=== PATIENT | female | born 1970 | race Two or more races ===

== ENCOUNTER → 2017-03-22 | Outpatient (CLI) | payer MEDICARE ==
[2017-03-22 14:26] LABS: LYMPH # 2.7 K/mm3 (0.7-4.5); LYMPH % 34.3 % (10-50.0)
[2017-03-22 16:28] LABS: BUN 7 mg/dL (7-18)
[2017-03-22 16:47] LABS: GFR (ESTIMATED) 77 ML/MIN (59-)
[2017-03-23 09:38] LABS: HBsAg Screen Negative (Negative); Hep A Ab, IgM Negative (Negative); Hep B Core Ab, IgM Negative (Negative); Hep C Virus Ab 0.1 (0.0-0.9)
== END ==
LOC: LAB 13:44
PROVIDERS: Nurse Practitioner Family
DX: E11.21 Type 2 diabetes mellitus with diabetic nephropathy (principal); Z00.00 Encounter for general adult medical examination without abnormal findings